=== PATIENT | female | born 2000 | race Caucasian/White ===

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

== ENCOUNTER 2022-02-28 15:08 | Emergency (ER) | payer MEDICAID ==
[2022-02-28 15:23] VITALS: BP 107/53; PULSE 80
[2022-02-28] MEDS ORDERED: Ketorolac 30 MG/ML SDV IM ONE (15:54)
== END 2022-02-28 16:58 | disposition home or self-care (01) ==
LOC: JP.ED 15:08
DX: N94.6 Dysmenorrhea, unspecified (principal); Z91.018 Allergy to other foods
CPT/HCPCS: 96372; 99281; 99283; J1885

== ENCOUNTER 2022-07-15 09:15 | Emergency (ER) | payer MEDICAID ==
[2022-07-15 09:43] VITALS: BP 110/70; PULSE 72
[2022-07-15] MEDS ORDERED: Ketorolac 30 MG/ML SDV IVPUSH ONE (09:50)
[2022-07-15] MEDS ORDERED: Prochlorperazine 10 MG/2 ML SDV IVPUSH ONE (09:51)
[2022-07-15] MEDS ORDERED: diphenhydrAMINE 50 MG/ML SDV IVPUSH ONE (09:51)
[2022-07-15] MEDS ORDERED: Sodium Chloride 0.9% 1,000 ML IV SCH (10:00)
[2022-07-15 10:25] LABS: ESTIMATED GFR 127 mL/min (>60)
== END 2022-07-15 11:55 | disposition home or self-care (01) ==
LOC: JP.ED 09:15
DX: R51.9 Headache, unspecified (principal); M62.838 Other muscle spasm; Z20.822 Contact with and (suspected) exposure to COVID-19
CPT/HCPCS: 36415; 80053; 85025; 87635; 96361; 96374; 96375; 99284; J0780; J1885; J7030; U0002

== ENCOUNTER 2022-07-26 10:53 | Emergency (ER) | payer MEDICAID ==
[2022-07-26] MEDS ORDERED: Prochlorperazine 10 MG in Sodium Chloride 0.9% 50 ML IV ONE (11:37)
[2022-07-26] MEDS: Ketorolac 30 MG/ML SDV IVPUSH PRN (11:46)
[2022-07-26] MEDS: Sodium Chloride 0.9% 500 ML IV SCH (11:46)
[2022-07-26 11:53] LABS: ESTIMATED GFR 108 mL/min (>60)
[2022-07-26] MEDS: Prochlorperazine 10 MG in Sodium Chloride 0.9% 50 ML IV ONE (11:54)
[2022-07-26 14:42] VITALS: BP 121/62; PULSE 71
== END 2022-07-26 12:59 | disposition home or self-care (01) ==
LOC: JP.ED 10:53
DX: R51.9 Headache, unspecified (principal); J45.909 Unspecified asthma, uncomplicated; Z91.018 Allergy to other foods; Z79.899 Other long term (current) drug therapy
CPT/HCPCS: 36415; 80048; 96365; 96375; 99284; J0780; J1885; J3490; J7040

== ENCOUNTER 2022-08-01 15:44 | Emergency (ER) | payer MEDICAID ==
[2022-08-01 16:03] VITALS: BP 119/74; PULSE 78
[2022-08-01] MEDS ORDERED: Sodium Chloride 0.9% 10 ML Syringe FLUSH PRN (16:30)
[2022-08-01] MEDS ORDERED: Lactated Ringers 1,000 ML IV SCH (16:30)
[2022-08-01] MEDS ORDERED: LORazepam 2 MG/ML SDV IVPUSH ONE (16:32)
[2022-08-01 17:05] LABS: ESTIMATED GFR 132 mL/min (>60)
[2022-08-01] MEDS ORDERED: Ondansetron 4 MG/2 ML SDV IVPUSH ONE (19:28)
== END 2022-08-01 21:17 | disposition home or self-care (01) ==
LOC: JP.ED 15:44
DX: O21.9 Vomiting of pregnancy, unspecified (principal); Z3A.01 Less than 8 weeks gestation of pregnancy; Z79.899 Other long term (current) drug therapy; Z20.822 Contact with and (suspected) exposure to COVID-19
CPT/HCPCS: 36415; 74018; 76817; 80053; 81001; 83605; 83690; 84702; 84703; 85025; 87635; 96361; 96374; 96375; 99284; J2060; J2405; J3490; J7120; U0002

== ENCOUNTER 2022-09-21 17:08 | Emergency (ER) | payer MEDICAID ==
[2022-09-21 17:33] VITALS: PULSE 91
[2022-09-21] MEDS ORDERED: Ondansetron 4 MG/2 ML SDV IVPUSH ONE (18:11)
[2022-09-21] MEDS ORDERED: Sodium Chloride 0.9% 10 ML Syringe FLUSH PRN (18:11)
[2022-09-21] MEDS ORDERED: Sodium Chloride 0.9% 1,000 ML IV SCH (18:15)
[2022-09-21 18:47] LABS: ESTIMATED GFR 138 mL/min (>60)
[2022-09-21 19:30] VITALS: BP 101/53
== END 2022-09-21 19:49 | disposition home or self-care (01) ==
LOC: JP.ED 17:08
DX: O21.1 Hyperemesis gravidarum with metabolic disturbance (principal); Z3A.14 14 weeks gestation of pregnancy; Z91.018 Allergy to other foods; Z79.899 Other long term (current) drug therapy
CPT/HCPCS: 36415; 80053; 81001; 85025; 96361; 96374; 99284; J2405; J3490; J7030

== ENCOUNTER 2022-10-19 10:23 | Emergency (ER) | payer MEDICAID ==
[2022-10-19 11:05] VITALS: BP 131/67; PULSE 77
[2022-10-19] MEDS ORDERED: Sodium Chloride 0.9% 1,000 ML IV ONE (11:16)
[2022-10-19] MEDS ORDERED: Metoclopramide 10 MG/2 ML SDV IVPUSH ONE (11:16)
[2022-10-19] MEDS ORDERED: Metoclopramide 10 MG Tab PO ONE (12:22)
== END 2022-10-19 12:51 | disposition home or self-care (01) ==
LOC: JP.ED 10:23
DX: O21.9 Vomiting of pregnancy, unspecified (principal); Z3A.00 Weeks of gestation of pregnancy not specified; Z91.018 Allergy to other foods
CPT/HCPCS: 96361; 96374; 99283; A9270; J2765; J7030

== ENCOUNTER 2023-03-11 07:10 | Emergency (ER) | payer MEDICAID ==
[2023-03-11 07:16] VITALS: BP 125/88; PULSE 78
[2023-03-11] MEDS ORDERED: Sodium Chloride 0.9% 10 ML Syringe FLUSH PRN (07:19)
[2023-03-11] MEDS ORDERED: Prochlorperazine 10 MG/2 ML SDV IVPUSH ONE (07:19)
[2023-03-11] MEDS ORDERED: HYDROmorphone 0.5 MG/0.5 ML Syringe IVPUSH ONE (07:19)
[2023-03-11] MEDS ORDERED: diphenhydrAMINE 50 MG/ML SDV IVPUSH ONE (07:19)
[2023-03-11] MEDS ORDERED: Dexamethasone 4 MG/ML SDV IVPUSH STA (07:20)
[2023-03-11] MEDS ORDERED: Sodium Chloride 0.9% 1,000 ML IV SCH (07:45)
== END 2023-03-11 08:53 | disposition home or self-care (01) ==
LOC: JP.ED 07:10
DX: O99.353 Diseases of the nervous system complicating pregnancy, third trimester (principal); G43.909 Migraine, unspecified, not intractable, without status migrainosus; J45.909 Unspecified asthma, uncomplicated; Z3A.38 38 weeks gestation of pregnancy; Z91.018 Allergy to other foods
CPT/HCPCS: 96361; 96374; 96375; 99283; J0780; J1100; J1170; J1200; J3490; J7030

== ENCOUNTER 2023-03-13 18:47 | Emergency (ER) | payer MEDICAID ==
[2023-03-13] MEDS ORDERED: Sodium Chloride 0.9% 10 ML Syringe FLUSH PRN (19:57)
[2023-03-13 20:28] LABS: ESTIMATED GFR 127 mL/min (>60)
[2023-03-13] MEDS ORDERED: diphenhydrAMINE 50 MG/ML SDV IVPUSH ONE (20:36)
[2023-03-13] MEDS ORDERED: Sodium Chloride 0.9% 1,000 ML IV SCH (20:45)
[2023-03-13 20:48] VITALS: BP 122/77; PULSE 76
[2023-03-13] MEDS ORDERED: Morphine 10 MG/ML Syringe IM ONE (20:56)
== END 2023-03-13 22:24 | disposition home or self-care (01) ==
LOC: JP.ED 18:47
DX: G43.919 Migraine, unspecified, intractable, without status migrainosus (principal); J45.909 Unspecified asthma, uncomplicated; Z91.018 Allergy to other foods; Z79.899 Other long term (current) drug therapy; Z20.822 Contact with and (suspected) exposure to COVID-19
CPT/HCPCS: 36415; 80053; 81001; 83735; 85025; 87635; 96361; 96374; 99283; J1200; J3490; J7030; U0002

== ENCOUNTER 2025-06-28 11:25 | Emergency (ER) | payer MEDICAID ==
[2025-06-28 12:21] VITALS: BP 118/75; PULSE 88
== END 2025-06-28 13:20 | disposition left against medical advice (07) ==
LOC: JP.ED 11:25
DX: Z53.21 Procedure and treatment not carried out due to patient leaving prior to being seen by health care provider (principal)